=== PATIENT | female | born 1985 | race Caucasian/White ===

== ENCOUNTER → 2018-01-14 | Outpatient (CLI) | payer OTHER ==
[~2018-01-14] MED LIST: ACET500T68 PO; ALBU8.5H IH; DOCU-416 PO; HYDR2TAB4 PO; LEVO50TA86 PO; MET10 PO; MULT-1335 PO; OND4 PO; PROM25SU61 RC
== END ==
LOC: LAB 12:07
PROVIDERS: ATTEND Otolaryngology
DX: J35.01 Chronic tonsillitis (principal)
CPT/HCPCS: 87071

== ENCOUNTER 2018-02-28 00:50 | Day surgery (SDC) | payer OTHER ==
[2018-02-28] VITALS (7 sets, daily range): BP systolic 101–118; BP diastolic 69–94
[~2018-02-28] VITALS: Ht 170.2 cm; Wt 120.2 kg
[~2018-02-28 00:50] MED LIST changes: +TRAM-627 PO
[2018-02-28] MEDS ORDERED: ONDANSETRON 4 MG/2 ML VIAL ONE (09:44)
[2018-02-28] MEDS ORDERED: LIDOCAINE MPF 1% 5 ML VIAL ONE (09:44)
[2018-02-28] MEDS ORDERED: PROPOFOL EMUL(*) 10MG/ML 20 ML 40 ML ONE (09:44)
[2018-02-28] MEDS ORDERED: DEXAMETHASONE SOD 4 MG/ML VIAL ONE (09:46)
[2018-02-28] MEDS ORDERED: FAMOTIDINE(*) 20MG/50ML PREMIX 50 ML IVPB ONE (11:53)
[2018-02-28] MEDS ORDERED: MIDAZOLAM 2 MG/2 ML VIAL IVP PRN (12:00)
[2018-02-28] MEDS ORDERED: NORMOSOL R SOLN(*) 1000 ML BAG 1,000 ML IV PRN (12:00)
[2018-02-28] MEDS ORDERED: BUPIVACAIN 0.25% INJ 50ML VIAL ONE (12:00)
[2018-02-28] MEDS ORDERED: LIDOCAINE/SOD BICARB 8.4% SYR ID ONE (12:00)
[2018-02-28] MEDS ORDERED: FAMOTIDINE 20 MG TAB PO ONE (12:00)
[2018-02-28] MEDS ORDERED: SUGAMMADEX SOD 200 MG/2 ML SDV ONE (12:03)
[2018-02-28] MEDS ORDERED: fentaNYL CITR 250 MCG/5 ML AMP ONE (12:41)
[2018-02-28] MEDS ORDERED: KETOROLAC 30 MG/ML VIAL ONE (12:49)
[2018-02-28] MEDS ORDERED: fentaNYL CITR 100 MCG/2 ML AMP ONE (13:24)
[2018-02-28] MEDS ORDERED: LIDO15SO2 PO (13:33)
[2018-02-28] MEDS ORDERED: AZIT-17 PO (13:34)
[2018-02-28] MEDS ORDERED: PROMETHAZINE 25 MG/ML 1 ML AMP ONE (14:19)
--- NOTE | 2018-02-28 19:58 | OPERATIVE REPORT 1 ---
EVENT DATE: February 28, 2018 SURGEON: Jeffry Smith MD ANESTHESIOLOGIST: Jorden Guzman MD ANESTHESIA: LMA. PROCEDURE PERFORMED Tonsillectomy. PREOPERATIVE DIAGNOSIS Recurrent acute tonsillitis. POSTOPERATIVE DIAGNOSIS Recurrent acute tonsillitis. INDICATIONS Please refer to the preoperative note. DESCRIPTION OF PROCEDURE The patient was positively identified in the preoperative area. She was there alone. Risks again explained include, but were not limited to bleeding, infection, and those associated with anesthesia. She acknowledged understanding of those risks. She was then brought back to the operative suite, placed supine on the operative table, and the anesthesia was administered. Once asleep, patient was positioned and prepped and draped in the usual sterile fashion. A McIvor mouth gag was placed in the patient's oral cavity. A red rubber catheter was placed through the right nostril and utilized to suspend the soft palate. The patient was noticed to have 3+ tonsils bilaterally. The right tonsil was then grasped with a curved Allis forceps and carefully dissected from the lateral pharyngeal wall with Bovie electrocautery. In a similar fashion, the contralateral tonsil was removed. Marcaine 0.25%, 0.6 mL was infiltrated for local anesthetic into the bilateral tonsillar fossae. The patient was then turned to Anesthesia for emergence. Estimated blood loss 25 mL. No complications. MTDD
[2018-03-01] MEDS ORDERED: METH125V13 IM (12:05)
[2018-03-01] MEDS ORDERED: KETO30CA16 IM (12:06)
[2018-03-02] MEDS ORDERED: KETO30CA16 IM (15:46)
[2018-03-02] MEDS ORDERED: METH125V13 IM (15:46)
== END 2018-02-28 14:05 | disposition home or self-care (01) ==
LOC: OR 00:50
PROVIDERS: ATTEND Otolaryngology
DX: J03.91 Acute recurrent tonsillitis, unspecified (principal)
CPT/HCPCS: 42826; 81025; 88304; J1100; J1885; J2001; J2250; J2405; J2550; J2704; J3010; J3490

== ENCOUNTER 2018-03-02 16:33 | Outpatient (RCR) | payer OTHER ==
[~2018-03-02 16:33] MED LIST changes: +AZIT-17 PO; +KETO30CA16 IM; +LIDO15SO2 PO; +METH125V13 IM
[2018-03-03] MEDS ORDERED: KETOROLAC 30 MG/ML VIAL IM ONE (09:15)
[2018-03-03] MEDS ORDERED: KETOROLAC 30 MG/ML VIAL IVP ONE (09:25)
[2018-03-03 09:39] VITALS: BP 137/79
== END 2018-03-07 08:55 | disposition home or self-care (01) ==
LOC: SPU 16:33
PROVIDERS: ATTEND Otolaryngology
DX: G89.18 Other acute postprocedural pain (principal)
CPT/HCPCS: 96372; J1885

== ENCOUNTER → 2018-03-28 | Outpatient (CLI) | payer OTHER ==
[~2018-03-28] MED LIST changes: +IOPAMIDOL 76% 50 ML INFUS BTL 100 ML ONE
--- NOTE | 2018-03-28 12:32 | RADIOLOGY IMAGING REPORT ---
[place] [facility] [place] NAME[place] Rosa [place] : 1985 MR: [id number] V: [id number] EXAM DATE: [id number] ORDERING PHYSICIAN: DEYSI MOISE TECHNOLOGIST: Location: [facility] Patient: Rosa Garcia : 1985 Visit/Account:[id number] Date of Sevice: 03/28/2018 EXAMINATION: CT neck with IV contrast HISTORY: Neck swelling, tonsillectomy 02/28/2018 TECHNIQUE: CT was obtained through the neck following IV contrast administration. Sagittal and co abel reformatted images were generated. 75 mL of IV injected. One of the following dose optimization techniques was utilized in the performance of this exam: autom ated exposure control; adjustment of the mA and/or kV according to patient size; or use of iterative reconstruction technique. Specific details can be referenced in the facility's radiology CT exam ope rational policy. COMPARISON: None. FINDINGS: Parotid/submandibular and thyroid glands: BB marker localizes the site of concern in the region of th e right inferior parotid gland. Benign lymph nodes are noted within both parotid glands largest on th e right measuring 8 mm. Pharyngeal and retropharyngeal soft tissues: Normal. Oral cavity and core analyst space soft tissues: Normal. Larynx/glottis and airway: Normal. Lymph nodes: Multiple benign nonenlarged bilateral jugular chain lymph nodes. Vessels: No significant finding. Visualized orbits / brain: No significant finding. Upper chest: Normal. Bones/sinuses/mastoid air cells: Normal. IMPRESSION: 1. No apparent acute finding. No neck abscess identified. 2. Multiple nonenlarged bilateral benign/reactive jugular chain lymph nodes. 3. No apparent abnormality in the area of concern in the right upper neck. Report Dictated By: Nate Yañez MD at 03/28/2018 12:21 PM Report E-Signed By: Nate Yañez MD at 03/28/2018 12:27 PM WSN:[id number]
== END ==
LOC: CT 11:14
PROVIDERS: ATTEND Otolaryngology
DX: Z90.89 Acquired absence of other organs (principal); R59.9 Enlarged lymph nodes, unspecified
CPT/HCPCS: 70491; Q9967

== ENCOUNTER → 2018-11-20 | Outpatient (REF) | payer OTHER ==
[~2018-11-20] MED LIST changes: -IOPAMIDOL 76% 50 ML INFUS BTL 100 ML ONE
[2018-11-20 12:17] LABS: PLATELET COUNT, AUTOMATED 239 K/uL (150-450)
== END ==
PROVIDERS: ATTEND Family Medicine
DX: R11.0 Nausea (principal); R51 Headache; R19.7 Diarrhea, unspecified
CPT/HCPCS: 82040; 82247; 82310; 82374; 82435; 82565; 82947; 84075; 84132; 84155; 84295; 84450; 84460; 84520; 85025

== ENCOUNTER → 2018-11-24 | Outpatient (CLI) | payer OTHER ==
[~2018-11-24] MED LIST changes: +CIPDEXPT EACH EAR; +MECL12.5 PO; +ONDA4TAB9 PO
--- NOTE | 2018-11-29 13:18 | RADIOLOGY IMAGING REPORT ---
FACILITY: [facility] [place] PATIENT NAME: MAYE SHEFFIELD : [id number] MR: [id number] V: [id number] EXAM DATE: [id number] ORDERING PHYSICIAN: ESTRELLA OSBORNE TECHNOLOGIST: Arvind Daniels RDMS, RDCS PROCEDURE:BILATERAL DIAGNOSTIC DIGITAL MAMMOGRAM WITH CAD ASSISTED INTERPRETATION & 3D TOMOSYNTHESIS REASON FOR STUDY: Painful lump 4-5 o'clock position Left breast FAMILY HISTORY OF BREAST CANCER: The patient is unsure of family history since her mother was adopted. BREAST PROCEDURES/TREATMENTS: None COMPARISON STUDIES: 08/17/14 MAMMOGRAM VIEWS OBTAINED: Bilateral 2D & 3D full field CC & MLO projections BREAST DENSITY: There are scattered areas of fibroglandular density throughout the breasts. MAMMOGRAM FINDINGS: The parenchymal pattern has remained stable allowing for difference in mammographic technique & patient positioning. ULTRASOUND LIMITED LEFT BREAST AREA SCANNED: The 3-6 o'clock position Left breast. ULTRASOUND FINDINGS: No sonographic abnormality is identified to account for patient's palpable findings. Therefore, clinical follow up recommended. DIAGNOSTIC CATEGORY 1--NEGATIVE. RECOMMENDATIONS: CLINICAL EVALUATION. IMPRESSION: BIRADS 1: Negative. No mammographic or sonographic abnormality identified to account for patient's palpable findings. Therefore, clinical follow up recommended. Dictated by: Leta Car M.D. on 11/24/2018 at 16:17 Approved by: Leta Car M.D. on 11/29/2018 at 13:13 [facility]
--- NOTE | 2018-11-29 13:18 | RADIOLOGY IMAGING REPORT ---
FACILITY: [facility] [place] PATIENT NAME: MAYE SHEFFIELD : [id number] MR: [id number] V: [id number] EXAM DATE: [id number] ORDERING PHYSICIAN: ESTRELLA OSBORNE TECHNOLOGIST: Reyna Araya PROCEDURE:BILATERAL DIAGNOSTIC DIGITAL MAMMOGRAM WITH CAD ASSISTED INTERPRETATION & 3D TOMOSYNTHESIS REASON FOR STUDY: Painful lump 4-5 o'clock position Left breast FAMILY HISTORY OF BREAST CANCER: The patient is unsure of family history since her mother was adopted. BREAST PROCEDURES/TREATMENTS: None COMPARISON STUDIES: 08/17/14 MAMMOGRAM VIEWS OBTAINED: Bilateral 2D & 3D full field CC & MLO projections BREAST DENSITY: There are scattered areas of fibroglandular density throughout the breasts. MAMMOGRAM FINDINGS: The parenchymal pattern has remained stable allowing for difference in mammographic technique & patient positioning. ULTRASOUND LIMITED LEFT BREAST AREA SCANNED: The 3-6 o'clock position Left breast. ULTRASOUND FINDINGS: No sonographic abnormality is identified to account for patient's palpable findings. Therefore, clinical follow up recommended. DIAGNOSTIC CATEGORY 1--NEGATIVE. RECOMMENDATIONS: CLINICAL EVALUATION. IMPRESSION: BIRADS 1: Negative. No mammographic or sonographic abnormality identified to account for patient's palpable findings. Therefore, clinical follow up recommended. Dictated by: Leta Car M.D. on 11/24/2018 at 16:17 Transcribed by: THADDEUS on 11/29/2018 at 11:21 Approved by: Leta Car M.D. on 11/29/2018 at 13:13 [facility]
== END ==
LOC: MAMO 02:02
PROVIDERS: ATTEND Physician Assistant
DX: N63.20 Unspecified lump in the left breast, unspecified quadrant (principal); Z80.3 Family history of malignant neoplasm of breast
CPT/HCPCS: 77062; 77066

== ENCOUNTER 2018-11-25 10:41 | Emergency (ER) | payer OTHER ==
[2018-11-25 10:49] VITALS: BP 131/94
--- NOTE | 2018-11-25 10:51 | ER Report ---
History and Physical Time Seen By MD: 10:46 HPI/ROS CHIEF COMPLAINT: slowed speech and confusion HISTORY OF PRESENT ILLNESS: Patient is a 33 yo F that presents after waking up this morning at about 6:30 with difficulty in speaking and ataxia. She reports a 1 week history of headache, nausea and R ear pain. She admits to history of migraines which typically present with unilateral headache and aura, but she states her current symptoms are different. Her headache was severe, 8/10 on Wednesday associated with vomiting. She tried taking Zofran and Tylenol with rest which somewhat relieved her symptoms. She was feeling better on Wednesday and but had persistent right ear pain and saw her ENT physician who gave her abx ear drops. She notes that last night her ear pain increased associated with nausea. She tried Zofran, meclizine and Tylenol which provided some relief. She woke up this morning with difficulty with word finding and felt "drunk", like she was on a boat. She was unable to concentrate and function at work. She denies any head trauma, fall or LOC. REVIEW OF SYSTEMS: Constitutional: No fever, + chills/cold sweats, + fatigue. Eyes: No discharge. No vision changes ENT: No sore throat. Cardiovascular: No chest pain, no palpitations. Respiratory: No cough, no shortness of breath. Gastrointestinal: No abdominal pain, no vomiting. Genitourinary: No hematuria. Musculoskeletal: No neck/back pain. Skin: No rashes. Neurological: No headache. Allergies: Coded Allergies: Penicillins (Verified Allergy, Severe, 01/29/09) clarithromycin (Verified Allergy, Severe, HIVES, 01/29/09) hydrocodone (Verified Allergy, Intermediate, VOMITS, 01/29/09) meperidine (Verified Allergy, Intermediate, VOMITS, 01/29/09) oxycodone (Verified Allergy, Intermediate, VOMITS, 01/29/09) propoxyphene (Verified Allergy, Intermediate, VOMITS, 01/29/09) lactase (Verified Allergy, Unknown, 02/18/18) lactose (Unverified Adverse Reaction, Mild, patient reported not tolerated in diet, 09/18/14) wheat (Unverified Adverse Reaction, Mild, Patient reports not tolerated in diet, 09/18/14) Uncoded Allergies: CRANBERRIES (Allergy, Severe, ANAPHYLACTIC REACTION , 01/29/09) tegaderm (Allergy, Mild, Rash, 09/18/14) Home Meds Active Scripts Ciprofloxacin/Dexamethasone 0.3%-0.1% Otic Metcalf (CIPRODEX 0.3%-0.1% OTIC SUSP) 7.5 Ml Soln, 4 DROP EACH EAR BID for 7 Days, #1 BOT 1 Refill Prov:BRITANY FRANCO PA-C 11/23/18 Reported Medications Acetaminophen (TYLENOL EXTRA STRENGTH) 500 Mg Tablet, 500 MG PO PRN, TAB 11/24/18 Meclizine Hcl (MECLIZINE HCL) Unknown Strength Tablet, PO BID 11/24/18 Ondansetron 4 Mg Odt (ONDANSETRON 4 MG ODT) 4 Mg Tab.rapdis, 4 MG PO ONCE, TAB 11/24/18 Discontinued Reported Medications Multivitamin With Minerals (MULTIPLE VITAMIN) 1 Each Tablet, 1 EACH PO DAILY 09/18/14 Albuterol Sulfate 90 Mcg/Act (PROAIR HFA 90 MCG/ACT) 8.5 Gm Hfa.aer.ad, 1-2 PUFF IH 3-4XD PRN for WHEEZING 09/18/14 Hx Smoking: Yes Smoking Status: Never Smoker, Former Smoker Exposure to Second Hand Smoke?: No Hx Alcohol Use: Yes Constitutional Vital Sign - Last 24 Hours 11/25/18 10:49 Temp 98.2 Pulse 78 Resp 16 B/P (MAP) 131/94 Pulse Ox 90 O2 Delivery Room Air Physical Exam General Appearance: The patient is alert, has no immediate need for airway protection and no signs of toxicity. Tired appearing Eyes: Pupils equal and round no pallor or injection. ENT, Mouth: Mucous membranes are moist. Respiratory: There are no retractions, lungs are clear to auscultation. Cardiovascular: Regular rate and rhythm. Gastrointestinal: Abdomen is soft and non tender, bowel sounds normal. Neurological: Alert and orient x 4, CN2-12 intact, muscle strength and sensation to light touch intact in all extremities. Speech is slowed but clear and with organized thought process. Skin: Warm and dry, no rashes. Musculoskeletal: Neck is supple non tender. Pain in occiput, L>R, with flexion of the neck. Extremities are nontender, nonswollen and have full range of motion. DIFFERENTIAL DIAGNOSIS: After history and physical exam differential diagnosis was considered for migraine, electrolyte imbalance, hypothyroidism, depression, labyrinthitis, multiple sclerosis. Medical Decision Making Data Points Result Diagram: 11/25/18 1147 11/25/18 1147 Laboratory Hematology Test 11/25/18 11:47 White Blood Count 6.8 k/uL (4.5-11.0) Red Blood Count 4.88 M/uL (4.17-5.56) Hemoglobin 13.1 g/dL (12.0-16.0) Hematocrit 40.5 % (34.0-47.0) Mean Corpuscular Volume 83.1 fL (80.0-96.0) Mean Corpuscular Hemoglobin 26.8 pg (26.0-33.0) Mean Corpuscular Hemoglobin Concent 32.2 g/dL (32.0-36.0) Red Cell Distribution Width 16.0 % (11.5-14.5) H Platelet Count 268 K/uL (150-450) Mean Platelet Volume 9.5 fL (7.2-11.1) Neutrophils (%) (Auto) 57.3 % (39.4-72.5) Lymphocytes (%) (Auto) 33.2 % (17.6-49.6) Monocytes (%) (Auto) 6.5 % (4.1-12.4) Eosinophils (%) (Auto) 1.8 % (0.4-6.7) Basophils (%) (Auto) 1.2 % (0.3-1.4) Nucleated RBC Relative Count (auto) 0.1 /100WBC Neutrophils # (Auto) 3.9 K/uL (2.0-7.4) Lymphocytes # (Auto) 2.3 K/uL (1.3-3.6) Monocytes # (Auto) 0.4 K/uL (0.3-1.0) Eosinophils # (Auto) 0.1 K/uL (0.0-0.5) Basophils # (Auto) 0.1 K/uL (0.0-0.1) Nucleated RBC Absolute Count (auto) 0.00 K/uL Erythrocyte Sedimentation Rate 10 mm/HOUR (0-20) Chemistry Test 11/25/18 11:47 Sodium Level 141 mmol/L (137-145) Potassium Level 4.0 mmol/L (3.5-5.0) Chloride Level 103 mmol/L (98-107) Carbon Dioxide Level 27 mmol/L (22-31) Blood Urea Nitrogen 13 mg/dl (7-18) Creatinine 0.90 mg/dl (0.52-1.04) Glomerular Filtration Rate Calc > 60.0 Random Glucose 80 mg/dl (75-110) Calcium Level 8.9 mg/dl (8.4-10.2) Total Bilirubin 0.2 mg/dl (0.2-1.3) Aspartate Amino Transf (AST/SGOT) 21 U/L (0-35) Alanine Aminotransferase (ALT/SGPT) 28 U/L (0-56) Alkaline Phosphatase 76 U/L (0-126) Ammonia < 9 UMOL/L (9-33) Troponin I < 0.012 ng/ml C-Reactive Protein 0.6 mg/dl (<1.0) Total Protein 7.1 g/dl (6.3-8.2) Albumin 4.1 g/dl (3.5-5.0) Toxicology Test 11/25/18 00:00 11/25/18 11:47 Urine Opiates Screen Negative Urine Barbiturates Screen Negative Ur Tricyclic Antidepressants Screen Negative Urine Phencyclidine Screen Negative Urine Amphetamines Screen Negative Urine Benzodiazepines Screen Negative Urine Cocaine Screen Negative Urine Cannabinoids Screen Negative Serum Alcohol < 10 mg/dl Urinalysis Test 11/25/18 00:00 Urine Color Colorless Urine Clarity Clear Urine pH 8.0 pH (4.8-9.5) Urine Specific [place] 1.003 Urine Protein Negative mg/dL (NEGATIVE) Urine Glucose (UA) Negative mg/dL (NEGATIVE) Urine Ketones Negative mg/dL (NEGATIVE) Urine Blood Negative (NEGATIVE) Urine Nitrite Negative (NEGATIVE) Urine Bilirubin Negative (NEGATIVE) Urine Urobilinogen Negative mg/dL (0.2-1.9) Urine Leukocyte Esterase Negative (NEGATIVE) Urine RBC <1 /HPF (0-2/HPF) Urine WBC <1 /HPF (0-5/HPF) Urine Squamous Epithelial Cells None /LPF (</=FEW) Urine Bacteria Negative /HPF (NONE-FEW) Urine Mucus None /HPF (NONE-FEW) EKG/Imaging Imaging PATIENT NAME: Rosa Garcia : 1985 MR: [id number] V: [id number] EXAM DATE: [id number] ORDERING PHYSICIAN: SUZY WEAVER TECHNOLOGIST: Location: Patient: Rosa Garcia : 1985 Visit/Account:[id number] Date of Sevice: 11/25/2018 EXAMINATION: MRI brain without IV contrast HISTORY: Altered mental status COMPARISON: None. TECHNIQUE: Multi-planar, multi-sequence brain MRI was performed without IV contrast. FINDINGS: Brain volume: Normal. Sagittal midline structures: Normal. Ventricles: Normal. Acute ischemic changes: None. Hemorrhage: None. Masses/edema: None. Rose-white: Negative. White matter: Normal. Vessels: Normal. Extra-axial: None. Calvarium/scalp: Negative. Skull base: Negative. Visualized sinuses/orbits: Negative. Visualized upper neck: Negative. IMPRESSION: Unremarkable MRI of the brain Report Dictated By: SELAM KRISHNAN at 11/25/2018 1:05 PM Report E-Signed By: SELAM KRISHNAN at 11/25/2018 1:09 PM WSN:[id number] ED Course/Re-evaluation ED Course Patient is a 33-year-old female with reports of some of speech, intermittent confusion which is been going on for the better part of the week intermittently. Due to the patient's symptoms, MRI of the brain was completed to rule out other disease processes such as demyelinating syndromes, masses, etc. MRI showed no acute findings. Labs were unremarkable, there is no leukocytosis, electrolytes were stable, and inflammatory markers were normal, troponin was negative, there is no urinary tract infection. Patient was afebrile, hemodynamically stable throughout course. Patient was administered normal saline bolus, Toradol, Decadron, magnesium, Reglan, Benadryl for treatment of possible atypical migraine. Patient was updated regarding these findings. Recommended close PCP follow-up. Return precautions provided. Decision to Disposition Date: Nov 25, 2018 Decision to Disposition Time: 14:29 Depart Departure Latest Vital Signs Vital Signs Date Time Temp Pulse Resp B/P (MAP) Pulse Ox O2 Delivery O2 Flow Rate FiO2 11/25/18 10:49 98.2 78 16 131/94 90 Room Air Impression: Primary Impression: Altered mental status, unspecified Additional Impression: Headache Condition: Improved Disposition: HOME OR SELF-CARE Referrals: MARCEL VALLEJO DO (PCP) Patient Instructions: Acute Headache (ED) Additional Instructions: Please drink plenty of water. Please follow up closely with your primary care provider in the next 24-48 hours. Please return promptly if you develop worsening headache, worsening confusion, visual changes, fevers, chills, inability to keep down food or fluids. Problem Qualifiers SUZY WEAVER DO Nov 25, 2018 10:51
[2018-11-25] MEDS ORDERED: NS(*) 0.9% 1000 ML BAG 1,000 ML IV ONE (11:21)
[2018-11-25] MEDS ORDERED: KETOROLAC 30 MG/ML VIAL IVP ONE (11:30)
[2018-11-25 11:58] LABS: PLATELET COUNT, AUTOMATED 268 K/uL (150-450)
[2018-11-25] MEDS ORDERED: DEXAMETHASONE SOD PHOS 10MG/ML IVP ONE (13:05)
[2018-11-25] MEDS ORDERED: MAGNESIUM SUL/D5W* 1 GM/100 ML 100 ML IVPB ONE (13:05)
[2018-11-25] MEDS ORDERED: diphenhydrAMINE 50 MG/ML VIAL IVP ONE (13:05)
[2018-11-25] MEDS ORDERED: METOCLOPRAMIDE 10 MG/2 ML SDV IVP ONE (13:05)
[2018-11-25] MEDS ORDERED: DIAZEPAM 5 MG TAB PO ONE (13:10)
--- NOTE | 2018-11-25 13:17 | RADIOLOGY IMAGING REPORT ---
FACILITY: [facility] PATIENT NAME: Rosa Garcia : 1985 MR: [id number] V: [id number] EXAM DATE: ORDERING PHYSICIAN: SUZY WEAVER TECHNOLOGIST: Location: [facility] Patient: Rosa Garcia : 1985 Visit/Account:[id number] Date of Sevice: 11/25/2018 EXAMINATION: MRI brain without IV contrast HISTORY: Altered mental status COMPARISON: None. TECHNIQUE: Multi-planar, multi-sequence brain MRI was performed without IV contrast. FINDINGS: Brain volume: Normal. Sagittal midline structures: Normal. Ventricles: Normal. Acute ischemic changes: None. Hemorrhage: None. Masses/edema: None. Rose-white: Negative. White matter: Normal. Vessels: Normal. Extra-axial: None. Calvarium/scalp: Negative. Skull base: Negative. Visualized sinuses/orbits: Negative. Visualized upper neck: Negative. IMPRESSION: Unremarkable MRI of the brain Report Dictated By: SELAM KRISHNAN at 11/25/2018 1:05 PM Report E-Signed By: SELAM KRISHNAN at 11/25/2018 1:09 PM WSN:[id number]
== END 2018-11-25 14:53 | disposition home or self-care (01) ==
LOC: ER 10:52
DX: R41.82 Altered mental status, unspecified (principal); R51 Headache
CPT/HCPCS: 70551; 80305; 80320; 81001; 82140; 82375; 82803; 84484; 85025; 85651; 86140; 96361; 96365; 96375; 99284; J1100; J1200; J1885; J2765; J3475; J7030; 82040; 82247; 82310; 82374; 82435; 82565; 82947; 84075; 84132; 84155; 84295; 84450; 84460; 84520